=== PATIENT | male | born 1985 | race Caucasian/White ===

== ENCOUNTER 2016-03-02 09:39 | Emergency (ER) | payer SELFPAY ==
[2016-03-02] MEDS ORDERED: CATAPRES PO ONE (10:02)
--- NOTE | 2016-03-02 10:06 | Emergency Department Report ---
Chief Complaint: Neuro Symptoms/Deficit Stated Complaint: HEADACHE DROOPING LIPS Time Seen by Provider: 03/02/16 10:00 - HPI History of Present Illness: 31-year-old male comes in for complaint of headache that started yesterday. He reports that he woke up this morning with left feeling that his left side is droopy and none. Patient reports that he feels like his left side of his lip started drooping Y he was at work around 6 AM this morning. He denies any chest pain nausea vomiting no fever no chills. No recent traumas no recent URIs. Past medical history of nothing. - Exam Vital Signs: Vital Signs 03/02/16 09:44 Temperature 98.8 F Pulse Rate 80 Respiratory 16 Rate Blood Pressure 150/101 O2 Sat by Pulse 97 Oximetry Physical Exam: Patient alert and oriented 3. Neuro patient speech is fluent there is no drooping of the eye. EOMI intact no pronator drift Romberg is intact tongue protrusion and deviation of tongue intact. MSE screening note: Focused history and physical exam performed. Due to findings the following was ordered: Discussed with Dr. Muniz he recommends a CT without contrast as CBC BMP and clonidine 0.1 mg now. Patient be evaluated in the main ER. ED Disposition for MSE Condition: Stable
--- NOTE | 2016-03-02 10:20 | Cat Scan Report ---
CT HEAD WITHOUT CONTRAST: HISTORY: Headache, new onset hypertension. Serial contiguous axial images were obtained through the cranium. Intravenous contrast material was not administered. The ventricles are normal in size and appearance. There is no mass effect or midline shift. No areas of abnormally increased or decreased attenuation are seen. No mass lesion is seen. The mastoid air cells and visualized portions of the sinuses are normal. IMPRESSION: Cranial CT scan within normal limits.
[2016-03-02 10:26] LABS: Hematocrit 44.8 % (35.5-45.6); Hemoglobin 15.1 gm/dl (11.8-15.2); Mean Corpuscular HGB Conc 34 % (32-34); Mean Corpuscular Hemoglobin 29 pg (28-32); Mean Corpuscular Volume 87 fl (84-94); Platelet Count 356 K/mm3 (140-440); Red Blood Count 5.16 M/mm3 (3.65-5.03); Red Cell Distribution Width 13.3 % (13.2-15.2); White Blood Count 8.4 K/mm3 (4.5-11.0)
[2016-03-02 10:41] LABS: Anion Gap 19 mmol/L; Blood Urea Nitrogen 10 mg/dL (9-20); Calcium 9.4 mg/dL (8.4-10.2); Carbon Dioxide 25 mmol/L (22-30); Chloride 96.9 mmol/L (98-107); Glucose 118 mg/dL (75-100); Potassium 4.1 mmol/L (3.6-5.0); Sodium 137 mmol/L (137-145)
[2016-03-02] MEDS ORDERED: NORVASC PO ONE (15:21)
[2016-03-02] MEDS ORDERED: DELTASONE PO ONE (21:54)
[2016-03-02] MEDS ORDERED: VALTREX PO ONE (21:55)
--- NOTE | 2016-03-02 22:00 | Emergency Department Report ---
HPI - General Chief Complaint: Neuro Symptoms/Deficit Time Seen by Provider: 03/02/16 10:00 - HPI HPI: This is a 31-year-old male presents to the emergency department with complaint of a headache that began yesterday and continued through this morning. However the reason the patient came into the emergency department today is because he felt like his left side of his face began to become numb and his mouth started drooping at about 6 AM this morning while at work. He denies any problems with movement, slurred speech,, vision change. He does not have a primary care doctor. He does present with some mild hypertension but has never been diagnosed with hypertension. No primary care doctor. No recent travel or sick contacts at home. Patient says that he has been having trouble closing his left eye. ED Past Medical Hx - Medications Home Medications: Home Medications Medication Instructions Recorded Confirmed Last Taken Type Acyclovir [Zovirax Tab] 800 mg PO Q6H #28 tab 03/02/16 Unknown Rx predniSONE [Deltasone] 30 mg PO BID #42 tab 03/02/16 Unknown Rx ED Review of Systems ROS: Stated complaint: HEADACHE DROOPING LIPS Other details as noted in HPI Comment: All other systems reviewed and negative Constitutional: denies: chills, fever Eyes: other (trouble closing the left eye). denies: eye pain ENT: denies: ear pain, throat pain Respiratory: denies: cough, shortness of breath, wheezing Cardiovascular: denies: chest pain, palpitations Gastrointestinal: denies: abdominal pain, nausea, diarrhea Genitourinary: denies: urgency, dysuria Musculoskeletal: denies: back pain, joint swelling, arthralgia Skin: denies: rash, lesions Neurological: headache. denies: confusion Physical Exam - Physical Exam Vital Signs: Vital Signs 03/02/16 03/02/16 03/02/16 09:44 12:58 16:41 Temperature 98.8 F Pulse Rate 80 83 87 Respiratory 16 16 16 Rate Blood Pressure 150/101 143/100 Blood Pressure 143/100 154/106 [Right] O2 Sat by Pulse 97 100 97 Oximetry 03/02/16 03/02/16 16:43 21:35 Temperature 98.8 F Pulse Rate 86 81 Respiratory 20 Rate Blood Pressure 154/106 Blood Pressure 142/84 [Right] O2 Sat by Pulse 98 Oximetry Physical Exam: GENERAL: The patient is well-developed well-nourished. HEENT: Normocephalic. Atraumatic. Extraocular motions are intact. Patient has moist mucous membranes. Pupils equal reactive to light bilaterally. Patient has complete paralysis of the left-sided nasolabial fold. Patient cannot completely close the left eye lid. He is able to lift the left eyelid and eyebrow but not significant enough to match the right side. Tongue is midline. NECK: Supple. Trachea is midline. CHEST/LUNGS: Clear to auscultation. There is no respiratory distress noted. HEART/CARDIOVASCULAR: Regular. There is no tachycardia. There is no gallop rub or murmur. ABDOMEN: Abdomen is soft, nontender. Patient has normal bowel sounds. There is no abdominal distention. SKIN: There is no rash. There is no edema. There is no diaphoresis. NEURO: The patient is awake, alert, and oriented. The patient is cooperative. The patient has no focal neurologic deficits. The patient has normal speech and gait. There is no pronator drift. No dysmetria. MUSCULOSKELETAL: There is no tenderness or deformity. There is no limitation range of motion. There is no evidence of acute injury. Muscle strength 5 out of 5 for upper and lower extremity bilaterally. ED Course Vital Signs 03/02/16 03/02/16 03/02/16 09:44 12:58 16:41 Temperature 98.8 F Pulse Rate 80 83 87 Respiratory 16 16 16 Rate Blood Pressure 150/101 143/100 Blood Pressure 143/100 154/106 [Right] O2 Sat by Pulse 97 100 97 Oximetry 03/02/16 03/02/16 16:43 21:35 Temperature 98.8 F Pulse Rate 86 81 Respiratory 20 Rate Blood Pressure 154/106 Blood Pressure 142/84 [Right] O2 Sat by Pulse 98 Oximetry ED Medical Decision Making - Lab Data Result diagrams: 03/02/16 10:18 03/02/16 10:18 - Radiology Data Radiology results: report reviewed CT of the head does not show any acute process including no hemorrhage, mass, shift, diffuse edema or skull fracture. - Medical Decision Making 31-year-old male presents to the emergency department with acute left-sided facial droop, decreased sensation of left-sided face, trouble closing the left eye lid. All this together appears consistent with a Conn's palsy. However the patient did have some blood work that did not show any leukocytosis, electrolyte of normality, renal insufficiency her glucose at normalities. He had a CT of the head that did not show any bleed, shift, mass, ischemic changes or any acute process. Patient does have some elevated blood pressure so he was given some Catapres through triage and his blood pressures come down to a more reasonable level. He will be discharged home with some steroids and acyclovir. He'll be given referrals for primary care and neurology. He will return to the ER with any worsening of his symptoms or any acute distress. - Differential Diagnosis Conn's palsy, CVA, nerve palsy Critical Care Time: No Critical care attestation.: If time is entered above; I have spent that time in minutes in the direct care of this critically ill patient, excluding procedure time. ED Disposition Clinical Impression: Conn's palsy Hypertension Qualifiers: Hypertension type: essential hypertension Qualified Code(s): I10 - Essential ( primary) hypertension Disposition: DISCHARGED TO HOME OR SELFCARE Is pt being admited?: No Condition: Stable Instructions: Hypertension (ED), Conn Palsy (ED) Additional Instructions: Please follow-up with the primary care doctor and neurology referrals that you have been given. Take the prednisone and acyclovir as prescribed. Try to stay away from foods that are high in salt and caffeinated products to assist with your elevated blood pressure. Return to the emergency department with any worsening of your symptoms or any acute distress. Prescriptions: predniSONE [Deltasone] 30 mg PO BID #42 tab Acyclovir [Zovirax Tab] 800 mg PO Q6H #28 tab Referrals: NATHALIE GUERRIER MD [Primary Care Provider] - 3-5 Days RANDALL NAM MD [Staff Physician] - 3-5 Days TUAN MADDOX MD [Staff Physician] - 3-[address] [facility] [Outside] - 3-5 Days Time of Disposition: 22:04 Print Language: MALTESE
[2016-03-03 06:48] VITALS: BP 141/89
== END 2016-03-02 23:31 | disposition home or self-care (01) ==
LOC: ED 09:39
DX: G51.0 Bell's palsy (principal); I10 Essential (primary) hypertension
CPT/HCPCS: 36415; 70450; 80048; 85027; 99284; J7512